=== PATIENT | female | born 1985 | race Caucasian/White ===

== ENCOUNTER 2017-10-02 16:35 | Outpatient (CLI) | payer BC, SELFPAY ==
[2017-10-02 17:19] VITALS: BMI 27.1
--- NOTE | 2017-10-06 16:43 | OB.TRI.NOTE ---
History of Present Illness Date of Service: 10/02/17 Was patient seen by the physician?: No Reason For Visit: R/O LABOR Date of Service: 10/02/17 Final QIAN: 11/24/17 Gestational age: 33 Weeks and 0 Days Home Medications Medication Instructions Recorded Calcium Carbonate [Tums] 500 mg PO BID PRN 10/02/17 Vits [Prenatabs FA] 1 tablet PO DAILY 10/02/17 Ranitidine [Zantac] 150 mg PO BID 10/02/17 Allergies Sulfa (Sulfonamide Antibiotics) Allergy (Verified 10/02/17 17:20) Abd cramps/diarrhea upset stomach NST - FHR Rate Baby A Baseline: 130 Variability:: Moderate Accelerations:: 15 x 15 Decelerations:: None NST Reactive:: Yes FHR Category:: Category I Uterine Activity:: q2-6 min Impression/Plan 32yo @ 32+ wks, contractions, not in labor cervical exam unchanged - dc home with labor precautions.
== END 2017-10-02 18:55 | disposition home or self-care (01) ==
LOC: WPOUT 16:45 → WP 16:47
PROVIDERS: Family Provider Student in an Organized Health Care Education/Training Program; PCP Student in an Organized Health Care Education/Training Program; Visit Provider Obstetrics & Gynecology
DX: O60.03 Preterm labor without delivery, third trimester (principal); Z3A.33 33 weeks gestation of pregnancy
CPT/HCPCS: 59025; 59050; 99218; G0378

== ENCOUNTER 2017-11-23 02:15 | Inpatient (IN) | payer BC, SELFPAY ==
--- NOTE | 2017-11-23 02:15 | DT_ITS ---
This patient was seen during an EMR downtime November 17, 2017 - November 24, 2017. This patient may have a combination of paper and electronic documentation or all paper documentation. All documentation is viewable within the e-chart portion of [facility] for each patient visit.
[2017-11-23 16:24] LABS: Amphetamine Urine VISTA NEGATIVE (<1000 ng/mL); Barbiturate Urine VISTA NEGATIVE (< 200 ng/mL); Benzodiazepine Urine VISTA NEGATIVE (< 200 ng/mL); Cocaine Urine VISTA NEGATIVE (< 300 ng/mL); Ecstacy Urine VISTA NEGATIVE (< 500 ng/mL); Methadone Urine VISTA NEGATIVE (< 300 ng/mL); PCP Urine VISTA NEGATIVE (< 25 ng/mL); THC Urine VISTA NEGATIVE (< 50 ng/mL)
[2017-11-24 05:26] LABS: Hematocrit 27.1 % (37-47); Mean Corp Hgb Conc 33.2 g/gl (32-36); Mean Corpuscular Hgb 30.7 pg (27.0-32.0); Mean Corpuscular Volume 92.5 fL (81-99); Mean Platelet Vol. 11.7 fl (6.2-12.0); Platelet Count 113 K/mm3 (150-450); RBC Distribution Width CV 15.1 % (11.6-14.6); RBC Distribution Width SD 48.8 fl (35.1-43.9); Red Blood Count 2.93 M/mm3 (4.2-5.4); White Blood Count 11.8 K/mm3 (4.4-11.0)
[2017-11-24 05:46] LABS: Scan Indicated on CBC? Y/N NO
[2017-11-24] MEDS: Acyclovir 200 MG Capsule 400 MG PO ×3 (10:15→21:36)
--- NOTE | 2017-11-24 12:15 | PCM.PN.OB ---
Subjective: Doing well per patient and nursing staff. Ambulating and taking PO without difficulty. Voiding and passing flatus. Pain controlled by Motrin. Bottle feeding, planning to pump breastmilk and feed to baby once she is home. Denies any headache, visual changes, chest pain, shortness of breath, leg pain, increased vaginal bleeding or clots. Planning D/C home tomorrow. Baby Circumcised this am. - Physical Exam General: Alert, Oriented x3, Cooperative Lungs: Clear to auscultation, Normal air movement, No rhonchi, No wheeze Cardiovascular: Regular rate, Regular Rhythm, No murmurs Abdomen: Bowel Sounds Present, Soft, Non Tender, - - Fundus firm 2 below U Extremities: No edema, - - Chio's negative bilaterally Psych/Mental Status: Normal Affect, Appropriate Laboratory Tests Past 24 Hrs 11/23/17 11/23/17 11/24/17 04:55 12:45 04:45 WBC 11.8 H RBC 2.93 L Hgb 9.0 L Hct 27.1 L MCV 92.5 MCH 30.7 MCHC 33.2 RDW 15.1 H RDW Differential 48.8 H Plt Count 113 L MPV 11.7 Urine Opiates Screen NEGATIVE Urine Methadone Screen NEGATIVE Ur Barbiturates Screen NEGATIVE Ur Phencyclidine Scrn NEGATIVE Ur Amphetamines Screen NEGATIVE U Methamphetamin-MDMA NEGATIVE U Benzodiazepines Scrn NEGATIVE Urine Cocaine Screen NEGATIVE U Cannabinoids Screen NEGATIVE Ur Drug Screen Comment Blood Type A POSITIVE Antibody Screen NEGATIVE Medical Necessity - Tobacco Use Smoking Status: Current every day smoker Assessment/Plan A: PPD#1 History of drug abuse History of HSV P: 1) Routine PP care. Planning D/C home tomorrow. 2) client services associate consulted due to history of drug abuse, no current use since 2008, low risk. 3) Continue Acyclovir for 6 weeks 4) Start Ferrous Sulfate 325mg PO once daily, Hgb 9.0.
--- NOTE | 2017-11-24 12:22 | DCINST_ITS ---
Discharge Diet: No Restrictions Discharge Activity: Return to Normal Activity, May not drive while taking narcotic pain medications., May Shower May resume sexual activity in: 4-6 weeks Weight Bearing Status: Weight bearing as tolerated Call your doctor if your incision/area has: Continuous Slow Oozing, Sudden Increased Bleeding, Increased Pain/ Swelling, Increased Redness, Foul Smelling Discharge Call your doctor if you observe: Fever of 101 or Higher, Coldness, Increased Pain, Numbness or Tingling, Change in Color, Inability to urinate, Inability to have a bowel movement, Using more than one pad per hour, Shortness of breath, Dizziness, Swelling in the ankles, Chest pain, Prolonged hiccoughing, Increased palpitations (irregular heartbeat), Calf discomfort, Uncontrolled pain Additional Instructions: If you experience any of the following, contact your healthcare provider. * Bleeding that soaks a pad every hour for 2 hours * Fever 100.4 or higher * Unrelieved incision or abdominal pain * Swelling, redness, discharge or bleeding from your incision or episiotomy site * Your incision begins to separate * Problems urinating (including inability to urinate or burning while urinating) . * Visual changes * Severe headache * Flu-like symptoms * Pain or redness in one of both of your breasts * Pain, warmth, tenderness or swelling in your legs, especially the calf area * Frequent nausea and vomiting * Symptoms of depression or anxiety If you experience any of the following, call 911 or go to the nearest Emergency Room. * Chest pain * Problems breathing * Seizure activity * Partial or complete paralysis of a body part, slurred speech, weakness or drooping of the face, or a sudden inability to walk or hold your balance Allergies/Adverse Reactions: Allergies Sulfa (Sulfonamide Antibiotics) Allergy (Verified 10/02/17 17:20) Abd cramps/diarrhea upset stomach Medications to take at Discharge Vits [Prenatabs FA] 1 tablet PO DAILY 10/02/17 Please Follow Up With: Blossom Wolfe CNM When: Call to make an appointment with your doctor in 6 weeks. If you had elevated Blood Pressure or 4th degree laceration you will need to be seen in 2 weeks. Primary Care Physician: Jesus Khan DO [Primary Care Provider] -
[2017-11-24] MEDS: Acetaminophen 325 MG Tablet PO ×2 (13:25→21:36)
[2017-11-24] MEDS: Ferrous Sulfate 325 MG Tablet PO (13:26)
[2017-11-24 13:29] VITALS: BP 108/65; PULSE 76; RESP 14; TEMP 36.4; O2SAT 96
[2017-11-24] MEDS: Ibuprofen 600 MG Tablet PO (18:47)
[2017-11-24 19:45] VITALS: BP 118/74; PULSE 80; RESP 16; TEMP 36.5; O2SAT 100
[2017-11-25 01:45] VITALS: BP 116/63; PULSE 72; RESP 16; TEMP 36.6; O2SAT 100
[2017-11-25] MEDS: Acyclovir 200 MG Capsule 400 MG PO (06:06)
[2017-11-25] MEDS: Ibuprofen 600 MG Tablet PO (06:07)
[2017-11-25] MEDS: Ferrous Sulfate 325 MG Tablet PO (08:27)
[2017-11-25 08:37] VITALS: BP 112/67; PULSE 77; RESP 18; TEMP 36.5; O2SAT 97
--- NOTE | 2017-11-25 11:40 | CASEMGMT ---
Social Work Assessment Labor and Delivery Unit Date of Referral: 11/24/2017 Time of Referral: 0830 Referred By: verbal notification by nursing staff Date of Intervention: 11/25/2017 Time of Intervention: 1140 Reason for Referral: maternal history of depression, anxiety, and remote history of substance use. History obtained from: Medical record and mother of baby (MOB) Elizabeth Cartwright; FOB present for part of conversation. Household composition: MOB, father of baby (FOB) Maksim Cartwright, and older daughter Melissa. MOB reports home situation is safe and adequate. Patient's parent/guardian status: MOB and FOB report to have been together for about3-4 years, since December 2016. MOBs daughter Melissa (born February 2009) is from a different relationship and that father has shared parenting of Melissa. FOB has a son from a previous relationship, this son lives in [place]. [place], is the first child for MOB and FOB together. is to be named, Mich Cartwright. MOB denies any form of abuse in relationship with FOB. Medical History: MOB is G4, P1 to 2 after delivering Mich. MOB with care starting at 8 weeks gestation. Infant born weighing 3210 grams at delivery. Educational Status: MOB graduated high school, denies any issues with reading, writing, or learning comprehension. 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 Parents reports to be doing fine financially. Infant Supplies: Report to have needed baby supplies including safe sleep space, car seat, clothing, diapers, wipes, bottles, formula and bottles. Childcare/Caregiver(s): MOB. Do have early childhood director lined up for when MOB returns to work. Transportation: Both MOB and FOB drive. Programs/Agencies Involved: MOB and FOB deny any agency involvement, or need for referrals to services such as WIC. MOB reports history of counseling, though nothing currently. Children Services/Legal Issues: MOB denies legal issues. Denies past or present involvement with children services. Behavioral Health Issues: MOB reports history of depression and anxiety, no medication though history of counseling. MOB reports in early 20s did have some thoughts of suicide and self-injury but nothing in years. MOB denies any thoughts, plans, intent for suicide during this or currently. MOB denies thoughts of harm to others. MOB reports history of drug use, at age 18 went to rehab for cocaine use. MOB then started to use pills and marijuana. MOB denies any use since 2007 or 2008. MOB reports daughter helped to change life for the better. MOB did have a negative drug screen at time of delivery on 11-23-17. Family/Social Stressors: MOB and FOB just bought their own home, moving last week. MOB and FOB had lived separately with respective families until were able to save enough money to buy a house. Other than move during this , no other changes or stressors reported. Support Systems: MOB report sot have good support from both MOBs side and FOBs side of the family. FOB is taking the week off of work to help MOB with transition to home with baby. Depression/Shaken Baby/Safe Sleeping: MOB and FOB able to give appropriate responses to shaken baby and safe sleeping Educated both to depression, risk, and importance or seeking out support should symptoms arise. ASSESSMENT: MOB and FOB both participated in conversation with social service worker, and FOB stepped out at social workers request. MOB with bright affect, happy mood, good eye contact, and stayed on task to conversation at hand. MOB held baby throughout social work visit, was attentive, and gentle. MOB report to have baby supplies, to have support at home going, reports to feel a connection to baby. MOB denies any drugs use history or desire to return to use. MOB denies any current symptoms of depression or anxiety, or need for referral but does report to know where to turn if counseling is again needed in the future. PLAN: MOB and baby to discharge home today. Provided packet of information on depression, tips on self-care and online supports Provided packet of lists for [facility] resources including mental health and substance abuse providers if needed in the future. No other services requested or indicated. -CROW Contreras, CORRECTIONS SERGEANT
[2017-11-25 12:00] VITALS: BP 123/77; PULSE 86; RESP 18; TEMP 36.3; O2SAT 99
[2017-11-25 15:19] LABS: Hematocrit 33.3 % (37-47); Hemoglobin 11.3 g/dl (12.0-15.0); Mean Corp Hgb Conc 33.9 g/gl (32-36); Mean Corpuscular Volume 91.2 fL (81-99); Mean Platelet Vol. 11.7 fl (6.2-12.0); Platelet Count 122 K/mm3 (150-450); RBC Distribution Width SD 48.7 fl (35.1-43.9); Red Blood Count 3.65 M/mm3 (4.2-5.4); Scan Indicated on CBC? Y/N NO; White Blood Count 15.7 K/mm3 (4.4-11.0)
== END 2017-11-25 12:20 | disposition home or self-care (01) | DRG 775 ==
PROVIDERS: Admitting Provider Obstetrics & Gynecology; Family Provider Student in an Organized Health Care Education/Training Program; PCP Student in an Organized Health Care Education/Training Program; Visit Provider Obstetrics & Gynecology
DX: O99.12 Other diseases of the blood and blood-forming organs and certain disorders involving the immune mechanism complicating childbirth (principal); D69.6 Thrombocytopenia, unspecified; O99.334 Smoking (tobacco) complicating childbirth; Z86.19 Personal history of other infectious and parasitic diseases; Z3A.39 39 weeks gestation of pregnancy; Z37.0 Single live birth
CPT/HCPCS: 59050; 80307; 85027; 86850; 86900; 99218; J7120; G0378

== ENCOUNTER 2021-03-25 00:20 | Outpatient (CLI) | payer BC, SELFPAY ==
[2021-03-25 00:51] VITALS: PULSE 98; O2SAT 98
[2021-03-25 00:52] VITALS: BP 130/76; PULSE 83
[2021-03-25 00:53] VITALS: PULSE 89; TEMP 37.7; O2SAT 98
[2021-03-25 00:57] VITALS: BMI 27.9
[2021-03-25 01:02] VITALS: BP 125/79; PULSE 94
--- NOTE | 2021-03-25 09:25 | OB.TRI.NOTE ---
HPI - General HPI Narrative RASHEED TUTTLE, is a 35 F who presents with ctxs. PFSH PFSH Home Medications vit,[id number] [Prenatabs FA] 1 tab PO DAILY 10/02/17 [History Last Taken 03/24/21 08:00 1 tablet] acyclovir 200 mg PO TID 03/25/21 [History Last Taken 03/24/21] Allergy/AdvReac Type Severity Reaction Status Date / Time Sulfa (Sulfonamide Allergy Abd Verified 03/25/21 00:58 Antibiotics) cramps/diarrhea Social History Smoking Status: Current every day smoker History Elective abortions Hx Para 1 Spontaneous abortions Hx # Term Pregnancies Ectopic pregnancies Hx # Pregnancies Multiple births # of living children NST FHR Rate Baby A Baseline: 125 Variability:: Moderate Accelerations:: 15 x 15 Decelerations:: Variable Uterine Activity:: Irregular Assessment & Plan (1) False labor: COMMENT: 39&4 PLAN: Reactive NST for false labor
== END 2021-03-25 04:30 | disposition home or self-care (01) ==
LOC: WPOUT 00:37 → WP 00:38
PROVIDERS: Visit Provider Obstetrics & Gynecology
DX: O47.1 False labor at or after 37 completed weeks of gestation (principal); O99.333 Smoking (tobacco) complicating pregnancy, third trimester; Z3A.39 39 weeks gestation of pregnancy
CPT/HCPCS: 59025; 59050; 99218; G0378

== ENCOUNTER 2021-03-29 03:55 | Inpatient (IN) | payer BC, SELFPAY ==
[2021-03-29] VITALS (23 sets, daily range): BP systolic 116–165; BP diastolic 71–94; PULSE 64–100; RESP 16–18; TEMP 36.4–37.1; O2SAT 95–98; BMI 27.6
[2021-03-29] MEDS: Lactated Ringers 1,000 ML 50 ML IV (04:10)
[2021-03-29] MEDS: Lactated Ringers 500 ML 999 ML IV (04:15)
[2021-03-29 04:37] LABS: Absolute Lymphocyte Count 2.54 X10^3/uL (0.83-4.51); Absolute Neutrophil Count 8.3 X10^3/uL (2.0-7.7); Basophil# 0.02 X10^3/uL; Basophil% 0.2 % (0-1); Eosinophil# 0.11 X10^3/uL; Eosinophils% 0.9 % (0-5); Hematocrit 33.8 % (37-47); Hemoglobin 11.9 g/dL (12.0-15.0); Lymphocyte # 2.54 X10^3/ul (0.83-4.51); Lymphocyte % 20.8 % (19-41); Mean Corp Hgb Conc 35.2 g/dL (32-36); Mean Corpuscular Hgb 32.2 pg (27.0-32.0); Mean Corpuscular Volume 91.4 fL (81-99); Mean Platelet Vol. 12.3 fl (6.2-12.0); Monocyte# 0.89 X10^3/uL; Monocyte% 7.3 % (0-10); NRBC Flagged by Analyzer 0 % (0-5); Neutrophil # 8.28 X10^3/uL (2.7-7.7); Neutrophil % 67.8 % (47-70); Platelet Count 118 K/mm3 (150-450); RBC Distribution Width CV 13.8 % (11.6-14.6); White Blood Count 12.2 K/mm3 (4.4-11.0)
--- NOTE | 2021-03-29 04:41 | PLAC_PTH ---
PATIENT: RASHEED TUTTLE LOC: [facility] U#:[id number] AGE/SX: 35/F ROOM: [facility] RE03/29/[address]: Blossom Wolfe CNM : 1985 BED: 1 DIS: 03/30/2021 SPEC #: [id number] RECD: 03/29/21 05:56 STATUS: DORIAN MARIE #: [id number] TODD: 03/29/21 04:[address]: Blossom Wolfe DEPT: SURGICAL PATHOLOGY RECD BY: Desirae Chau Tissues: Placenta, NOS Procedures: Surgery Specimen Level V HEADER OPERATION: Vaginal delivery PRE-OP DIAGNOSIS: Bleeding with delivery TISSUE SUBMITTED: Placenta MICROSCOPIC DIAGNOSIS Placenta: Placental disc - third trimester placenta (446 gm). - Focal chronic villitis of unknown etiology. - Focal increased intervillous and perivillous fibrin deposition. Membranes ? nonspecific chronic inflammation (significance is not clear). Umbilical cord - three blood vessels and no pathologic diagnosis. SJ:shaun 04/02/2021 MICROSCOPIC DESCRIPTION Slides are reviewed. GROSS DESCRIPTION SPECIMEN: PLACENTA / CLINICAL INFORMATION: A. Weight: 3.61 kg B. Gestational Age: 40 weeks C. Sex: Male PLACENTAL WEIGHT (POST FIXATION): 446 gm PLACENTAL DIMENSIONS: 18 x 16 x 3 cm PLACENTAL SHAPE: Usual ovoid PLACENTAL WEIGHT FOR GESTATIONAL AGE: Within 10-99th percentile MEMBRANES - Present A. Insertion: Marginal B. Site of rupture from edge: 6 cm from edge of placental disc C. Color of membrane: Prince-patterson D. Abnormalities: None UMBILICAL CORD - Present A. Color: Prince-patterson B. Insertion: Paracentral C. Length: 46 cm D. Diameter: 1 cm E. Number of vessels: Three F. Abnormalities: None PLACENTAL DISC - Present A. Color of surface: Prince-patterson B. surface abnormalities: None C. Maternal cotyledons: Intact with minimal tears D. Attached retro placental clot: No clot E. Cut surface: Dark red and spongy F. Lesions: None G. Separate clot: Absent SECTIONS SUBMITTED: 1. Membrane roll 2. Cord, maternal end 3. Cord, end 4. Placental disc, and maternal surfaces 5. Placental disc, and maternal surfaces 6. Placental disc, and maternal surfaces SJ:shaun 03/30/21 TC:3 CPT: 21624
[2021-03-29] MEDS: Oxytocin 30 units/NS 500 ml 30 UNITS/500 ML IV.SOLN 334 UNITS IV (04:44)
--- NOTE | 2021-03-29 04:51 | PCM.HP.OB ---
HPI - General General Date of Admission: 03/29/21 HPI Narrative RASHEED TUTTLE, is a 35 F at 40w1 who presents in active labor with SROM at 0300. Maternal Data Information QIAN Calculator Estimated Delivery Date Method Current WG Current Estimate 03/28/21 Manual 40w 1d PFSH PFSH Medical History (Updated 03/29/21 @ 05:04 by Blossom Wolfe CNM) Depression Genital herpes affecting History of prior with IUGR HPV (human papilloma virus) infection Home Medications vit,[id number] [Prenatabs FA] 1 tab PO DAILY 10/02/17 [History Last Taken 03/24/21 08:00 1 tablet] acyclovir 200 mg PO TID 03/25/21 [History Last Taken 03/24/21] Allergy/AdvReac Type Severity Reaction Status Date / Time Sulfa (Sulfonamide Allergy Abd Verified 03/25/21 00:58 Antibiotics) cramps/diarrhea Surgical History (Updated 03/29/21 @ 05:01 by Betty Ruiz) History of surgery History of surgery Social History Smoking Status: Current every day smoker History Elective abortions Hx Para 1 Spontaneous abortions Hx # Term Pregnancies Ectopic pregnancies Hx # Pregnancies Multiple births # of living children NST FHR Rate Baby A Baseline: 135 Variability:: Moderate Accelerations:: 15 x 15 Decelerations:: None FHR Category:: Category I Uterine Activity:: every 2 minutes, strong ROS Constitutional Constitutional: Reports systems reviewed and no addt'l complaints, except as documented; Denies headache(s) Eyes Eyes: Denies acute decrease in peripheral vision, blurry vision or change in vision ENT HEENT: Reports systems reviewed and no addt'l complaints, except as documented Cardiovascular Cardiovascular: Denies chest pain or dizziness Respiratory/Chest Respiratory/Chest: Denies cough, dyspnea, dyspnea on exertion, shortness of breath at rest or shortness of breath with exertion Gastrointestinal Gastrointestinal: Denies abdominal pain, diarrhea, nausea or vomiting Genitourinary Genitourinary: Denies abdominal discomfort or movement Musculoskeletal Musculoskeletal: Denies limited range of motion Integumentary Integumentary: Reports systems reviewed and no addt'l complaints, except as documented Neurologic Neurologic: Reports systems reviewed and no addt'l complaints, except as documented Psychiatric Psychiatric: Reports systems reviewed and no addt'l complaints, except as documented Endocrine Endocrinology: Reports systems reviewed and no addt'l complaints, except as documented Hematologic/Lymphatic Hematologic/Lymphatic: Reports systems reviewed and no addt'l complaints, except as documented Allergic/Immunologic Allergic/Immunologic: Reports systems reviewed and no addt'l complaints, except as documented Vital Signs Vital Signs Vital Signs: 03/29/21 04:10 03/29/21 04:27 03/29/21 04:37 Temperature 98.4 F Pulse Rate 85 84 78 Blood Pressure 163/83 H 165/83 H 160/84 H BP Systolic 163 165 160 BP Diastolic 83 83 84 03/29/21 04:42 03/29/21 04:50 Temperature 97.9 F Pulse Rate 100 70 Blood Pressure 149/76 H 134/94 H BP Systolic 149 134 BP Diastolic 76 94 Physical Exam Const alert and oriented x3 General Appearance: cooperative Orientation / Consciousness: awake, oriented to person, oriented to place and oriented to time Exam Limitations: no limitations HEENT normocephalic Head and Scalp: normal to inspection, normocephalic and atraumatic Face and Sinus: normal facial exam Eyes General Eye: normal appearance of both eyes Neck full ROM Chest Chest: symmetrical chest wall rise Resp normal respiratory effort and normal air movement Auscultation: clear to auscultation bilaterally Cardio regular rate, regular rhythm, S1 normal heart sound, S2 normal heart sound, no murmurs, no rub, no gallops and no clicks GI normal to inspection, nondistended, normoactive bowel sounds and non-tender appearance of the vagina normal Bladder / Kidney Exam: no CVA tenderness Manual OB Exam: estimated gestational size appropriate, presentation cephalic, dilated 9cm, effaced 90%, station +1 and other Back/Spine normal ROM Extremity normal to inspection and full ROM Skin no rashes or lesions noted Neuro oriented x3, CN's II-XII intact bilaterally and moves all extremities Sensorium / Orientation: awake, alert and oriented to person Motor Exam: clonus absent Deep Tendon Reflexes: Rt Patellar (L4): 2+ and Lt Patellar (L4): 2+ Labs Labs Labs: Blood Type A POSITIVE Antibody Screen NEGATIVE Hct 33.8 % (37-47) L Hgb 11.9 g/dL (12.0-15.0) L Rhogam given: No GBS negative RPR negative Rubella Immune HBsAG negative HepC negative HIV negative A positive GC/CT negative Urine tox screen negative on 08/18/20 Assessment & Plan (1) Active labor at term: (2) SROM (spontaneous rupture of membranes): (3) Thrombocytopenia affecting : (4) History of drug use: (5) History of herpes genitalis: (6) History of depression: (7) Tobacco use during : PLAN: 1. Admit to labor and delivery 2. Routine labs and IV 3. COVID screen 4. GBS negative 5. Planning unmedicated 6. EFM 7. collaborative physician and notified of patient admission
[2021-03-29 05:06] LABS: Amphetamine Urine VISTA NEGATIVE (<1000 ng/mL); Barbiturate Urine VISTA NEGATIVE (< 200 ng/mL); Benzodiazepine Urine VISTA NEGATIVE (< 200 ng/mL); Cocaine Urine VISTA NEGATIVE (< 300 ng/mL); Ecstacy Urine VISTA NEGATIVE (< 500 ng/mL); Methadone Urine VISTA NEGATIVE (< 300 ng/mL); PCP Urine VISTA NEGATIVE (< 25 ng/mL); THC Urine VISTA NEGATIVE (< 50 ng/mL); Vista UDS pH Range 7
--- NOTE | 2021-03-29 05:07 | OP.PCM_ITS ---
Assessment & Plan (1) Vaginal delivery: (2) Umbilical cord around neck in neri : Maternal Data Information QIAN Calculator Estimated Delivery Date Method Current WG Current Estimate 03/28/21 Manual 40w 1d Vaginal Delivery Maternal Presentation Maternal Presentation: Active Labor and Spontaneous Rupture of Membranes Operative Information Date of Procedure: 03/29/21 Pre-Operative Diagnosis: Active labor with Spontaneous Rupture of Membranes Post-Operative Diagnosis: Surgery / Procedure Performed: Spontaneous Vaginal Delivery Type of Anesthesia: None Estimated Blood Loss: 200ml Time of Delivery: 04:41 Findings Description of Procedure: Arrived at 7cm dilated and progressed rapidly to compl ete dilation with strong urge to push. Unmedicated. of viable male over intact perineum. APGARS 8,9. Infant head delivereed with CAN x1, delivered through. Cord around arm, abdomen, and legs bilaterally loose. Infant placed on maternal abdomen, mouth and nares suctioned for secretions, strong cry. Pitocin started for active 3rd stage management. Cord clamped and cut after pulsations ceased. Placenta delivered with maternal pushing, intact via connie, 3 vessel cord. Perineum inspected and revealed no lacerations and intact. Fundal massage and fundus firm, EBL 200ml. Vaginal sweep completed, sponge and instrument count correct. Mom and baby stable, planning to breastfeed. Family bonding well. notified of delivery. Presentation: Vertex and ALLA Amniotic Membrane Rupture Type: Spontaneous Amniotic Fluid Description: Clear and Bloody Placental Delivery Description: Spontaneous Placenta Disposition: Sent to Pathology Cord Vessel Description: 3 Vessels Cord Entanglement: Around neck x 1, loose (around arm, abdomen and legs bilaterally. All loose) Nuchal Cord Compression: Without compression A Gender: Male (1 minute): 8 (5 minute): 9 Delayed Cord Clamping: Yes Post Vaginal Delivery Medications Given After Delivery: IV Pitocin Episiotomy Description: None Laceration: None Complication Complications: None
[2021-03-29] MEDS: Ibuprofen 600 MG Tablet PO ×3 (06:26→20:21)
[2021-03-29] MEDS: Acetaminophen 500 MG Tablet 1000 MG PO (16:48)
[2021-03-30] MEDS: Acetaminophen 500 MG Tablet 1000 MG PO ×2 (00:01→08:11)
[2021-03-30 03:44] VITALS: BP 124/84; PULSE 81; RESP 18; TEMP 36.3
[2021-03-30] MEDS: Ibuprofen 600 MG Tablet PO (04:56)
--- NOTE | 2021-03-30 07:20 | PCM.PN.OB ---
Subjective Subjective Patient seen at bedside. Feeling good. Denies any pain. Ambulating and voiding without difficulty. Bottle feeding. Lochia decreasing. Desires discharge home today. Objective Data Objective Data Vital Signs: Vital Signs Temp Pulse Resp BP Pulse Ox 97.4 F L 81 18 124/84 H 95 03/30/21 03:44 03/30/21 03:44 03/30/21 03:44 03/30/21 03:44 03/29/21 11:21 Oxygen Delivery Method Room Air Weight: 176 lb 9.6 oz Body Mass Index (BMI) 27.6 Intake & Output: Intake and Output for Last 24 Hours 03/28/21 03/29/21 03/30/21 23:59 23:59 23:59 Intake Total 937.07 / 937.07 Balance 937.07 / 937.07 Lab / Micro Data Result Diagrams: 03/29/21 04:10 Micro: Microbiology 03/29/21 04:10 Nasal Secretion SARS-CoV-2 Antigen (Rapid) - Final ROS Eyes Eyes: Denies blurry vision, change in vision or spots in vision ENT HEENT: Denies dizziness or headache(s) Cardiovascular Cardiovascular: Denies abdominal pain, chest pain or dyspnea Respiratory/Chest Respiratory/Chest: Denies cough, dyspnea, shortness of breath at rest or shortness of breath with exertion Gastrointestinal Gastrointestinal: Denies abdominal pain, diarrhea or vomiting Genitourinary Genitourinary: Denies change in urinary stream, difficulty urinating or dysuria Musculoskeletal Musculoskeletal: Reports none Integumentary Integumentary: Denies rash Neurologic Neurologic: Denies dizziness, headache(s), memory loss or weakness Physical Exam Const alert and no apparent distress General Appearance: cooperative and comfortable Exam Limitations: no limitations HEENT normocephalic Eyes General Eye: normal appearance of both eyes Neck full ROM General: normal visual inspection Chest Chest: symmetrical chest wall rise Resp normal respiratory effort and normal air movement Effort and Inspection: symmetric chest movement Auscultation: clear to auscultation bilaterally Cardio regular rate and regular rhythm GI normal to inspection, nondistended, normoactive bowel sounds Back/Spine normal ROM Extremity full ROM and no calf tenderness General Extremity: normal exam except as noted Skin no rashes or lesions noted Neuro CN's II-XII intact bilaterally Psych mental status grossly normal Assessment & Plan (1) Vaginal delivery: PLAN: PPD 1 Routine care Discharge home with follow up in office
--- NOTE | 2021-03-30 07:29 | PCM.DC ---
Discharge Instructions Diet Discharge Diet: No restrictions Activity May resume sexual activity in: 6-8 weeks Weight Bearing Status: Weight bearing as tolerated Dressing / Incision Call your doctor if you observe: Fever of 101 or Higher, Inability to urinate, Using more than 1 pad per hour, Shortness of breath, Chest pain, Calf discomfort and Uncontrolled pain Follow Up Care Please Follow Up With: Michelle Osorio CNM When: 2 weeks virtual visit/ 6 weeks in office Test Results: Test results from this visit will be discussed in further detail at your follow-up appointment, if applicable. Discharge Plan Admission Admit Date/Time: 03/29/21 03:55 Primary Reason for Your Visit: Labor and delivery Attending Provider: Blossom Wolfe Discharge Orders/Prescriptions Prescriptions: Continued Prenatabs FA 1 TABLET tablet 1 tab PO DAILY RF: 0 Discontinued pantoprazole 20 mg Tablet,Delayed Release (Dr/Ec) 20 mg PO DAILY RF: 0 ferrous sulfate [Iron (ferrous sulfate)] 325 mg (65 mg iron) Tablet 325 mg PO DAILY RF: 0 acyclovir 200 mg Capsule 200 mg PO TID RF: 0 Disposition Disposition (needs filled in before D/C Order can be placed): Home, Self Care
[2021-03-30 08:21] VITALS: BP 114/77; PULSE 73; RESP 16; TEMP 36.9
--- NOTE | 2021-03-30 13:33 | CASEMGMT ---
Social Work Assessment Labor and Delivery Unit Patient Address: [address] [place] [address] Phone number: [phone] Date of Referral: 03.29.2021 Time of Referral: 829 Referred By: verbal notification by nursing Date of Intervention: 03.30.2021 Time of Intervention: 1030 Reason for Referral: Maternal history of depression and anxiety; remote history of substance use.n History obtained from: medical records including prior social work assessment, and mother of baby (MOB) Elizabeth Cartwright; father of baby (FOB) Maksim Cartwright also present. Household composition: MOB, FOB, and older children. No housing issues reported. Patient's parent/guardian status: MOB and FOB have been since December 2016. No reports of safety concerns and upone admission MOB denied any abuse. Prior social worke assessment, MOB also denies abuse. Minor children include: Melissa (born February), from a prior relationship, and history of shared parenting. Mich Cartwright (born November 2017) and baby Pushpa Cartwright (born 03[birth year]2021) are from relationship with the FOB. Medical History: KASEY is G5, P2 to 3 after delivering Talat. care started at 8 weeks gestation and regular thereafter. weighed 7 pounds 15 ounces at . Apgars 8 and 9 at 1 and 5 minutes of life. Educational Status: MOB graduated high school, denies any issues with reading, writing, or learning comprehension. Financial Status: FOB works in a body shop. 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 Infant Supplies: Report to have needed baby supplies including safe sleep space, car seat, clothing, diapers, wipes, bottles, formula and bottles. Childcare/Caregiver(s): MOB and FOB. Transportation: No issues. Programs/Agencies Involved: None reported. Denies need for any referrals to WIC, and decline referrals to [facility]> Children Services/Legal Issues: No reported involvement. Behavioral Health Issues: Mental Health History: Maternal history of depression, anxiety, and as a teen self injury. Denies any depression or anxiety history. Denies any mood or anxiety changes during this . History of both counseling and medication, though not current with either. Substance Use HistoryPrior social work assessment indicates MOB with history of drug use, at age 18 went to rehab for cocaine use. MOB then started to use pills and marijuana. [facility] record indicates history of some meth use during that timeframe. No reported use since 2008. MOB denies during this assessment and concerns for recent or current substance use. MOB reported in the past that her daughter helped MOB to change life for the better. Drug Screens: Maternal drug screens negative on 08.18.2020 and 03.29.2021. Family/Social Stressors: None reported. Support Systems: FOB, MOB's mother, sister, and MOB's in-laws. FOB will be off of work for a week to help out at home. Depression/Shaken Baby/Safe Sleeping : Information provided on all topics, verbally and in writing. ASSESSMENT: Me with MOB and FOB together. MOB holding baby who was sleeping. MOB gentle appropriate, and handling baby well. MOB smiling, bright affect, nondefensive. FOB quiet, but did participate and appropriate interactions noted. Parents report to have needed supplies for baby, reports to have adequate support, and MOB denies current concerns with mood or anxiety. Reports if needed in the future would go to counseling and use medication as a last resort. MOB and FOB accepted information on mood and anxiety disorders, which includes local supports. No voiced concerns by nursing staff regarding parent/child interactions or bonding. PLAN: MOB and baby to home. Resource or PPD/PPA provided for home going. No other services requested or indicated. -CROW Contreras, GOMEZ
[2021-04-03 15:45] LABS: Pathology Specimen OB SEE PATHOLOGY REPORT
== END 2021-03-30 11:35 | disposition home or self-care (01) | DRG 807 ==
PROVIDERS: Admitting Provider Advanced Practice Midwife; Visit Provider Advanced Practice Midwife
DX: O99.12 Other diseases of the blood and blood-forming organs and certain disorders involving the immune mechanism complicating childbirth (principal); Z37.0 Single live birth; D69.6 Thrombocytopenia, unspecified; O69.81X0 Labor and delivery complicated by cord around neck, without compression, not applicable or unspecified; O99.334 Smoking (tobacco) complicating childbirth; F17.200 Nicotine dependence, unspecified, uncomplicated; Z3A.40 40 weeks gestation of pregnancy
CPT/HCPCS: 59025; 59050; 80307; 85025; 86850; 86900; 86901; 87426; 88307; 99218; J7120; G0378

== ENCOUNTER 2021-11-28 16:47 | Emergency (ER) | payer BC, SELFPAY ==
[2021-11-28 16:48] VITALS: BP 127/81; PULSE 93; RESP 16; TEMP 37.3; O2SAT 99; BMI 23.5
[2021-11-28 16:50] VITALS: BP 127/81; PULSE 93; RESP 16; TEMP 37.3; O2SAT 99
--- NOTE | 2021-11-28 17:35 | RAD_ITS ---
STUDY: XR Hand Min 3 Views REASON FOR EXAM: Female, 36 years old. cat bite to 5th finger TECHNIQUE: XR Hand Min 3 Views RIGHT COMPARISON: None. FINDINGS: Normal radiocarpal articulation. Normal distal radioulnar joint. Normal visualized carpal bones. Normal carpal articulations Normal carpometacarpal articulation of the thumb. Normal second through fifth carpometacarpal joints. Normal metacarpi. Normal metacarpophalangeal joint of the thumb. Normal interphalangeal joint of the thumb. Normal proximal and distal phalanges of the thumb. Normal metacarpophalangeal joints of the second through fifth fingers. Normal proximal and distal interphalangeal joints of the second through fifth fingers. Normal phalanges of the second through fifth fingers. The soft tissue structures are unremarkable. RAD/Hand Min 3 Views IMPRESSION: There are no acute findings. Electronically Signed: Osvaldo Rowell MD at 17:59 EDT ,
[2021-11-28 17:49] LABS: Absolute Lymphocyte Count 2.08 X10^3/uL (0.83-4.51); Absolute Neutrophil Count 12.2 X10^3/uL (2.0-7.7); Basophil# 0.02 X10^3/uL; Basophil% 0.1 % (0-1); Eosinophil# 0.08 X10^3/uL; Eosinophils% 0.5 % (0-5); Hematocrit 37.1 % (37-47); Hemoglobin 12.9 g/dL (12.0-15.0); Lymphocyte # 2.08 X10^3/ul (0.83-4.51); Lymphocyte % 13.6 % (19-41); Mean Corp Hgb Conc 34.8 g/dL (32-36); Mean Corpuscular Hgb 30.3 pg (27.0-32.0); Mean Corpuscular Volume 87.1 fL (81-99); Mean Platelet Vol. 12.2 fl (6.2-12.0); Monocyte# 0.78 X10^3/uL; Monocyte% 5.1 % (0-10); NRBC Flagged by Analyzer 0 % (0-5); Neutrophil # 12.24 X10^3/uL (2.7-7.7); Neutrophil % 80.1 % (47-70); Platelet Count 172 K/mm3 (150-450); RBC Distribution Width CV 12.3 % (11.6-14.6); RBC Distribution Width SD 38.9 fl (35.1-43.9); Red Blood Count 4.26 M/mm3 (4.2-5.4); White Blood Count 15.3 K/mm3 (4.4-11.0)
[2021-11-28 17:58] LABS: Anion Gap 6 (5-15); BUN 11 mg/dL (7-18); Calcium,Total 9.9 mg/dL (8.5-10.1); Chloride 106 mmol/L (98-107); Creatinine, Serum 0.79 mg/dL (0.55-1.02); EST Glomerular Filtration Rate 89 mL/min (>60); Est Glom Filt Rate - Afr Amer 107 mL/min (>60); Estimated Creatinine Clearance 97.58 ml/min; Glucose 92 mg/dL (74-106); Potassium 3.6 mmol/L (3.5-5.1); Sodium Level 140 mmol/L (136-145)
--- NOTE | 2021-11-28 17:59 | EX.ED.GENINJ ---
HPI History of Present Illness Chief Complaint: Bite Informant: patient Narrative Narrative: Patient is a 36-year-old female with no significant past medical history presenting with cat bite to her right pinky finger. Patient is right-hand dominant. She states that she was at her parents house and she was scratched and bit by her parents cat. The cat is approximately 7 years old. Otherwise been acting appropriately. This happened around 1045 this morning. She is already having increased pain and swelling of her right pinky finger where the bite occurred and she came in for further evaluation. She did she went to urgent care but was told she needs to come to the ER. Denies associated fever or chills. Has no other complaints at this time. Tetanus Immunization: <5 years PFSH PFS Medical History Depression Genital herpes affecting History of depression History of drug use History of herpes genitalis History of prior with IUGR HPV (human papilloma virus) infection SROM (spontaneous rupture of membranes) Thrombocytopenia affecting Umbilical cord around neck in neri Vaginal delivery Home Medications amoxicillin 875 mg-potassium clavulanate 125 mg tablet 1 tab PO BID #20 tabs 11/28/21 [Rx Last Taken Unknown] ibuprofen 600 mg tablet 600 mg PO Q6H PRN pain #20 tabs 11/28/21 [Rx Last Taken Unknown] Allergy/AdvReac Type Severity Reaction Status Date / Time Sulfa (Sulfonamide Allergy Abd Verified 11/28/21 16:47 Antibiotics) cramps/diarrhea Surgical History History of surgery History of surgery Social History Smoking Status: Former smoker ROS ROS ED Constitutional Constitutional ED: Denies chills or fever(s) Eyes Eyes: Denies change in vision ENT ENT ED: Denies rhinorrhea or sore throat Cardiovascular Cardiovascular: Denies chest pain or palpitations Respiratory/Chest Respiratory/Chest: Denies cough Gastrointestinal Gastrointestinal: Denies abdominal pain, nausea or vomiting Genitourinary Genitourinary ED: Denies dysuria Musculoskeletal Musculoskeletal: Reports other Details: Right fifth finger pain and swelling ; Denies arthralgias or myalgias Integumentary Reports Abrasions Neurologic Neurologic: Denies headache(s), paresthesias or weakness Hematologic/Lymphatic Hematologic/Lymphatic: Denies easy bleeding or easy bruising EXAM Physical Exam Const Vital Signs: 11/28/21 16:48 11/28/21 16:50 Temperature 99.1 F 99.1 F Temperature Source Temporal Temporal Pulse Rate 93 93 Respiratory Rate 16 16 Blood Pressure 127/81 H 127/81 H Blood Pressure Mean 96 Pulse Ox 99 99 Oxygen Delivery Method Room Air Room Air Positive well nourished and well developed General Appearance ED: well developed HEENT atraumatic Eyes PERRL and EOMs intact bilaterally Chest Wall inspection of chest normal Resp normal respiratory effort and clear to auscultation bilaterally Cardio regular rhythm and no murmurs GI normal to inspection, nondistended, normoactive bowel sounds, non-tender and non-distended Extremity Extremity Narrative: Patient has localized swelling of the right pinky finger along the proximal phalanges. No joint swelling. Slightly decreased ability to flex the finger however I suspect this is from the edema. There is no tenderness over the flexor tendons and patient does not have Kan[place] signs. Neuro oriented x3, moves all extremities and no focal motor deficits Skin Skin Narrative: Puncture wound to the medial lateral aspect of the right proximal fifth finger. There is also scattered abrasions on both extremities consistent with cat scratches. No area of fluctuance or significant area of erythema/lymphangitic streaking appreciated. MDM MDM MDM Narrative Medical decision making narrative: Patient is evaluated for cat bite with associated right pinky pain and swelling. This occurred earlier today. She is concerned because of the increased swelling already. Pain is worse with range of motion. She did take NSAIDs prior to arrival. On exam patient is has normal vital signs. She does have some localized tenderness but no out right abscess or cellulitis. No pinpoint bony tenderness. No lymphangitic streaking or Kanaval signs. X-ray obtained which shows no signs of foreign body as interpreted by myself as well as radiology. I did check baseline lab work which did show mild leukocytosis of 15.3 and a normal BMP. CRP is pending. Patient is given a dose of Unasyn in the emergency room. On repeat examination patient has no progression or change in her physical exam. I feel that she is stable for outpatient treatment. She is given return precautions including worsening redness, swelling, pain or systemic symptoms such as fever or chills. She is counseled to have a low threshold to return to the emergency room as cat bites can get pretty bad very quickly. Is placed in a fabricated ulnar gutter splint for comfort and given Ortho for outpatient follow-up. Is started on Augmentin. Patient verbalizes agreement understand this plan. Discharged home in stable condition. Lab Data Attestation: I reviewed the patient's lab results. Labs: Laboratory Results - last 24 hr 11/28/21 11/28/21 17:40 17:40 WBC 15.3 H RBC 4.26 Hgb 12.9 Hct 37.1 MCV 87.1 MCH 30.3 MCHC 34.8 RDW Std Deviation 38.9 RDW Coeff of Bro 12.3 Plt Count 172 MPV 12.2 H Immature Gran % (Auto) 0.600 Neut % (Auto) 80.1 H Lymph % (Auto) 13.6 L [place] % (Auto) 5.1 Eos % (Auto) 0.5 Baso % (Auto) 0.1 Absolute Neuts (auto) 12.2 H Absolute Lymphs (auto) 2.08 Nucleated RBC % 0 Sodium 140 Potassium 3.6 Chloride 106 Carbon Dioxide 28.0 Anion Gap 6 BUN 11 Creatinine 0.79 Estim Creat Clear Calc 97.58 Est GFR (MDRD) Af Amer 107 Est GFR (MDRD) Non-Af 89 BUN/Creatinine Ratio 14.0 Glucose 92 Calcium 9.9 Radiography Diagnostic Testing: Clinical Impression(s) from Imaging Studies Hand X-Ray 11/28/21 17:35 IMPRESSION: There are no acute findings. Electronically Signed: Osvaldo Rowell MD at 17:59 EDT Reading Location ID and State: [facility] / [place] , Service support , Discharge Plan Triage Chief Complaint: Bite ED Provider: Carole Johansen Dx/Rx/DC Orders Clinical Impression: Cat bite, Cat bite of right hand with infection, Leukocytosis Instructions: ED Cat Bite Prescriptions: New amoxicillin-pot clavulanate 875-125 mg tablet 1 tab PO BID Qty: 20 0RF ibuprofen 600 mg tablet 600 mg PO Q6H PRN (Reason: pain) Qty: 20 0RF Primary Care Provider: Jesus Khan Referrals: Reid Acevedo DO [STAFF PHYSICIAN] - Jesus Khan DO [Primary Care Provider] - Activity Restrictions/Additional Instructions: Wear splint for comfort. Elevates your hand is much as possible to help with swelling. Ice through the splint.
[2021-11-28 20:10] LABS: CRP < 2.90 mg/L (0.0-3.0)
== END 2021-11-28 20:19 | disposition home or self-care (01) ==
LOC: ED 17:50
PROVIDERS: Emergency Provider Emergency Medicine; PCP Student in an Organized Health Care Education/Training Program; Visit Provider Emergency Medicine
DX: S61.451A Open bite of right hand, initial encounter (principal); S61.259A Open bite of unspecified finger without damage to nail, initial encounter; Z87.891 Personal history of nicotine dependence; D72.829 Elevated white blood cell count, unspecified; W55.01XA Bitten by cat, initial encounter
CPT/HCPCS: 29125; 73130; 80048; 85025; 86140; 96365; 99283; J7050; A4216; J0295

== ENCOUNTER 2023-09-16 09:50 | Inpatient (IN) | payer OTHER, SELFPAY ==
[2023-09-16] VITALS (69 sets, daily range): BP systolic 102–175; BP diastolic 55–94; PULSE 76–101; RESP 15–17; TEMP 36.1–36.9; O2SAT 93–100; BMI 29.6
[2023-09-16] MEDS: Oxytocin 10 UNITS/ML Vial IM (10:17)
--- NOTE | 2023-09-16 10:22 | PCM.HP.OB ---
HPI - General General Date of Admission: 09/16/23 Date of Service: 09/16/23 HPI Narrative RASHEED TUTTLE, is a 38 F who presents ctxs. Maternal Data Information Final QIAN: 09/27/23 Gestational age: 38&3 PFSH PFSH Medical History (Updated 09/16/23 @ 10:[address] Jens Davidson MD) Depression Genital herpes affecting History of depression History of drug use History of herpes genitalis History of prior with IUGR HPV (human papilloma virus) infection Thrombocytopenia affecting Home Medications amoxicillin 875 mg-potassium clavulanate 125 mg tablet 1 tab PO BID #20 tabs 11/28/21 [Rx Last Taken Unknown] ibuprofen 600 mg tablet 600 mg PO Q6H PRN pain #20 tabs 11/28/21 [Rx Last Taken Unknown] Allergy/AdvReac Type Severity Reaction Status Date / Time Sulfa (Sulfonamide Allergy Abd Verified 11/28/21 16:47 Antibiotics) cramps/diarrhea Surgical History History of surgery History of surgery Social History Smoking Status: Former smoker History Elective abortions Hx Para 2 Spontaneous abortions Hx # Term Pregnancies Ectopic pregnancies Hx # Pregnancies Multiple births # of living children Vital Signs Vital Signs Vital Signs: 09/16/23 10:20 09/16/23 10:21 09/16/23 10:20 Pulse Rate 80 82 Blood Pressure 137/85 H BP Systolic 137 BP Diastolic 85 Pulse Ox 09/16/23 10:21 Pulse Rate Blood Pressure BP Systolic BP Diastolic Pulse Ox 97 Labs Labs Labs: Blood Type A POSITIVE Antibody Screen NEGATIVE Hct 37.1 % (37-47) Hgb 12.9 g/dL (12.0-15.0) Rhogam given: No Assessment & Plan (1) Active labor at term: (2) Thrombocytopenia affecting : (3) Anemia affecting : QUALIFIERS: Trimester: third trimester Qualified Code(s): O99.013 - Anemia complicating , third trimester PLAN: Plan Patient presented in labor & precipitous .
--- NOTE | 2023-09-16 10:24 | EX.PCM.OBRPT ---
Maternal Data Information Final QIAN: 09/27/23 Gestational age: 38&3 Vaginal Delivery Maternal Presentation Maternal Presentation: Active Labor Operative Information Date of Procedure: 09/16/23 Pre-Operative Diagnosis: Labor Post-Operative Diagnosis: Labor Surgery / Procedure Performed: Spontaneous Vaginal Delivery Type of Anesthesia: None Estimated Blood Loss: 200ml Findings Description of Procedure: Patient prepped & draped when C/C/+2. She pushed well to deliver the head. head gently guided to allow delivery of anterior and posterior shoulders. No excess traction placed on head. Body delivered and 3VC clamped & cut in delayed fashion. Placenta delivered with gentle traction and good uterine tone obtained. Presentation: NIESHA Amniotic Membrane Rupture Type: Spontaneous Amniotic Fluid Description: Clear Placental Delivery Description: Expressed Placenta Disposition: [facility] Specimen(s) Removed: Placenta Cord Vessel Description: 3 Vessels Cord Entanglement: None Infant A Gender: Male (Sheela) (1 minute): 8 (5 minute): 9 Delayed Cord Clamping: Yes Post Vaginal Delivery Medications Given After Delivery: IM Pitocin Episiotomy Description: None Laceration: None Complication Complications: None
[2023-09-16] MEDS: Methylergonovine 0.2 MG/ML Ampul IM (11:12)
[2023-09-16] MEDS: Acetaminophen 500 MG Tablet PO (11:43)
[2023-09-16 11:55] LABS: Absolute Lymphocyte Count 1.33 X10^3/uL (0.83-4.51); Absolute Neutrophil Count 10.8 X10^3/uL (2.0-7.7); Basophil# 0.02 X10^3/uL; Basophil% 0.2 % (0-1); Eosinophil# 0.04 X10^3/uL; Eosinophils% 0.3 % (0-5); Hematocrit 31.3 % (37-47); Hemoglobin 10.3 g/dL (12.0-15.0); Lymphocyte # 1.33 X10^3/ul (0.83-4.51); Lymphocyte % 10.1 % (19-41); Mean Corp Hgb Conc 32.9 g/dL (32-36); Mean Corpuscular Hgb 28.6 pg (27.0-32.0); Mean Corpuscular Volume 86.9 fL (81-99); Mean Platelet Vol. 12.5 fl (6.2-12.0); Monocyte# 0.76 X10^3/uL; Monocyte% 5.8 % (0-10); NRBC Flagged by Analyzer 0 % (0-5); Neutrophil # 10.82 X10^3/uL (2.7-7.7); Platelet Count 132 K/mm3 (150-450); RBC Distribution Width CV 18.7 % (11.6-14.6); RBC Distribution Width SD 57.5 fl (35.1-43.9); White Blood Count 13.2 K/mm3 (4.4-11.0)
[2023-09-16 12:03] LABS: Syphilis Antibodies Non-reactive
[2023-09-16] MEDS: Magnesium Sulfate 4gm/100mL 4 GM/100 ML IV.SOLN. IV (12:25)
[2023-09-16] MEDS: Lactated Ringers 1,000 ML 25 ML IV (12:26)
[2023-09-16] MEDS: Labetalol (Prefilled) 20 MG/4 ML IV (12:32)
[2023-09-16] MEDS: Magnesium Sulfate 20 GM/500 ML BAG IV ×2 (13:00→22:53)
[2023-09-16 16:37] LABS: Amphetamine Urine NEGATIVE (<1000 ng/mL); Barbiturate Urine NEGATIVE (< 200 ng/mL); Benzodiazepine Urine NEGATIVE (< 200 ng/mL); Cocaine Urine NEGATIVE (< 300 ng/mL); Ecstacy Urine NEGATIVE (< 500 ng/mL); Methadone Urine NEGATIVE (< 300 ng/mL); Opiates Urine NEGATIVE (< 300 ng/mL); PCP Urine NEGATIVE (< 25 ng/mL); THC Urine NEGATIVE (< 50 ng/mL); Vista UDS pH Range 6
[2023-09-16 18:02] LABS: ALB/GLOB Ratio 0.8 RATIO (0.9-2.4); AST(SGOT) 18 U/L (15-37); Alanine Aminotransfer ALT/SGPT 13 U/L (13-56); Albumin, Serum 2.8 g/dL (3.2-5.0); Alkaline Phosphatase 116 U/L (45-117); Anion Gap 11 (5-15); BUN 3 mg/dL (7-18); BUN/Creat Ratio 7.6 RATIO (10-20); Calcium,Total 8.3 mg/dL (8.5-10.1); Chloride 106 mmol/L (98-107); Creatinine, Serum 0.39 mg/dL (0.55-1.02); EST Glomerular Filtration Rate 195 mL/min (>60); Est Glom Filt Rate - Afr Amer 236 mL/min (>60); Estimated Creatinine Clearance 224.32 ml/min; Globulin 3.5 g/dL (2.2-4.2); Glucose 83 mg/dL (74-106); Potassium 3.4 mmol/L (3.5-5.1); Protein, Total 6.3 g/dL (6.4-8.2); Sodium Level 136 mmol/L (136-145); Uric Acid 5.7 mg/dL (2.6-6.0)
[2023-09-16] MEDS: Ibuprofen 600 MG Tablet PO (19:42)
[2023-09-17] VITALS (20 sets, daily range): BP systolic 108–137; BP diastolic 58–84; PULSE 74–91; RESP 14–18; TEMP 36.1–36.7; O2SAT 93–98
[2023-09-17] MEDS: Ibuprofen 600 MG Tablet PO ×2 (07:39→15:45)
--- NOTE | 2023-09-17 08:10 | PN_ITS ---
Subjective Subjective patient seen at bedside, doing well. Patient reports good pain control. lochia mild. denies RODRIGUEZ, visual changes or epigastric pain. Objective Data Objective Data Vital Signs: Vital Signs Temp Pulse Resp BP Pulse Ox O2 Del Method 97 F L 78 14 115/71 98 Room Air 09/17/23 07:31 09/17/23 07:32 09/17/23 07:31 09/17/23 07:32 09/17/23 07:31 09/17/23 07:31 Oxygen Delivery Method Room Air Weight: 85.735 kg Body Mass Index (BMI) 29.6 Intake & Output: Intake and Output for Last 24 Hours 09/15/23 09/16/23 09/17/23 23:59 23:59 23:59 Intake Total 1014.17 / 1014.17 200 / 200 Output Total 1000 / 1000 500 / 500 Balance 14.17 / 14.17 -300 / -300 Lab / Micro Data 09/16/23 11:15 09/16/23 17:25 Labs: Laboratory Results - last 24 hr 09/16/23 11:15: WBC 13.2 H, RBC 3.60 L, Hgb 10.3 L, Hct 31.3 L, MCV 86.9, MCH 28.6, MCHC 32.9, RDW Std Deviation 57.5 H, RDW Coeff of Bro 18.7 H, Plt Count 132 L, MPV 12.5 H, Immature Gran % (Auto) 1.600 H, Neut % (Auto) 82.0 H, Lymph % (Auto) 10.1 L, [place] % (Auto) 5.8, Eos % (Auto) 0.3, Baso % (Auto) 0.2, Absolute Neuts (auto) 10.8 H, Absolute Lymphs (auto) 1.33, Nucleated RBC % 0, Syphilis Total Ab Non-reactive, Blood Type Cancelled, Antibody Screen Cancelled 09/16/23 11:55: Blood Type A POSITIVE, Antibody Screen NEGATIVE 09/16/23 16:00: Urine Opiates Screen NEGATIVE, Urine Methadone Screen NEGATIVE, Ur Barbiturates Screen NEGATIVE, Ur Phencyclidine Scrn NEGATIVE, Ur Amphetamines Screen NEGATIVE, MDMA (Ecstasy) Screen NEGATIVE, U Benzodiazepines Scrn NEGATIVE, Urine Cocaine Screen NEGATIVE, U Cannabinoids Screen NEGATIVE, Ur Drug Screen Comment 09/16/23 17:25: Sodium 136, Potassium 3.4 L, Chloride 106, Carbon Dioxide 19.0 L , Anion Gap 11, BUN 3 L, Creatinine 0.39 L, Estim Creat Clear Calc 224.32, Est GFR (MDRD) Af Amer 236, Est GFR (MDRD) Non-Af 195, BUN/Creatinine Ratio 7.6 L, Glucose 83, Uric Acid 5.7, Calcium 8.3 L, Total Bilirubin 0.50, AST 18, ALT 13, Alkaline Phosphatase 116, Total Protein 6.3 L, Albumin 2.8 L, Globulin 3.5, Albumin/Globulin Ratio 0.8 L Physical Exam Const alert and oriented x3 General Appearance: cooperative HEENT normocephalic Neck General: normal visual inspection GI soft to palpation and non-distended GI Narrative: Fundus firm Extremity normal to inspection and no calf tenderness Skin no rashes or lesions noted Neuro oriented x3 and CN's II-XII intact bilaterally Psych mental status grossly normal Assessment & Plan Assessment/Plan (1) Preeclampsia: (2) Vaginal delivery: (3) Anemia affecting : QUALIFIERS: Trimester: third trimester Qualified Code(s): O99.013 - Anemia complicating , third trimester (4) Thrombocytopenia affecting : PLAN: Plan PPD#1 , Doing well Routine care pain mgmt ambulation continue magnesium x 24 hrs PP monitor BPs
[2023-09-17] MEDS: Magnesium Sulfate 20 GM/500 ML BAG IV (09:10)
[2023-09-17] MEDS: 0.9% Saline Lock 10 ML Syringe IV (10:24)
[2023-09-17] MEDS: Escitalopram Oxalate 20 MG Tablet PO (10:24)
--- NOTE | 2023-09-17 14:07 | CASEMGMT ---
Social Work Assessment Labor and Delivery Unit Patient Address: [place] [address] Phone number: [phone] Date of Referral: 09/16/23 Time of Referral:? 1048 Referred By: Jens Davidson Date of Intervention: ??09/17/23 Time of Intervention:? 1300 Reason for Referral:? history of drug abuse 9 years ago Sw completed chart review and acknowledges social work consult due to maternal history of substance use. Sw presented to bedside and introduced self to mother of baby (MOB- Elizabeth) and father of baby (FOB- Maksim). Sw explained sw role during hospitalization and completed psychosocial assessment. History obtained from: medical records, MOB and FOB Household composition: Currently residing in the family home is MOB, MONIQUE, KASEY's oldest daughter (Melissa, 14 years old), and two other children that parents have together: Mich (5 years old) and Talat (2 years old). [place] baby will also reside at home when ready for discharge from hospital. Parents deny any issues or concerns with current housing. Patient's parent/guardian status:?KASEY states that she and MONIQUE met on [place] in 2015 and have been together ever since, got in 2017. No concerns regarding domestic violence or intimate partner violence. ? Medical History: ?KASEY is 38 year old female who is 6, para 3- now 4 following labor and delivery of . KASEY received routine care with [facility] throughout . KASEY presented to hospital and delivered baby via vaginal delivery at 38 weeks gestation on 09/16/23. Baby boy, named [place], was born weighing 7lb 7oz and his apgars were 8 and 9 at one and five minutes of life, respectfully. Baby will be followed by Dr. Lawson for pediatrics. KASEY states that she is bottle/ formula feeding baby. Educational Status:? Both parents graduated from high school, no concerns with reading, learning or comprehension. KASEY states that she obtained some college credits, but did not graduate. Financial Status: MONIQUE is gainfully employed outside of the home as a agriculture mechanic. KASEY is a stay at home mom. Infant Supplies:??Parents report to having obtained all necessary baby supplies, including: car seat, safe sleep space, clothes, diapers and wipes. Childcare/Caregiver(s):? MOB is the primary childcare provider along with MONIQUE when he is not at work. Transportation:??Both parents have their drivers license and reliable means of transportation. No barriers at this time. Programs/Agencies Involved: ??Parents are not connected to any community resources that help them financially. KASEY states that she is connected to a psychiatrist who prescribes her medication. ? Children Services/Legal Issues:?No history of Children Services involvement, no issues or concerns warranting referral to be made at this time. ?? Behavioral Health Issues: ??Mental Health History:?FOMuriel denies mental health history. MOB states that she has been diagnosed with depression and is prescribed Lexapro by her psychiatrist. MOB states that she can tell a difference with the medication and continued it throughout . MOB denies ever experiencing baby blues or or anxiety. MOB states that she is mindful of signs and symptoms to be on the lookout for. ?? Substance Use History:?MOB disclosed that she has a substance use history positive for: meth, THC, cocaine and pills. MOB states that when she had her daughter in 2008 she got treatment, went to rehab and has not used since that time. MOB denies any relapses. MOB states that she has no desire to use and it is because of her family that she stays sober. ? Family History:?Parents deny family history of addiction or substance use, or significant mental health diagnoses. ? Drug Screens: ??KASEY's urine screen at time of delivery was negative for all substances. Family/Social Stressors:? Parents deny any issues, concerns or stressors at this time. Parents state that eventually they are going to need to find a bigger house to live in, however the market is not a buyers market right now and they are going to wait for a little while. Support Systems: MOB states that both sets of grandparents are helpful and supportive. MOB states that her siblings are also available if she should need anything. Depression/Shaken Baby/Safe Sleeping:? Rob educated parents on the signs and symptoms of baby blues and depression and anxiety. Parents express understanding. MONIQUE states that he would be able to recognize if KASEY were struggling with her mental health, and he believes that he would know how to help and support her. MOB agrees and states that FOB is a big support to her. Rob educated parents on shaken baby prevention and ABCs of safe sleep. Parents express understanding. ASSESSMENT:? MOB and baby admitted following labor and delivery. MOB and FOB interactive and engaged during completion of psychosocial assessment. MOB admits to substance use and addiction history, denies any relapses since completing rehab/ treatment in 2008. Parents have obtained everything they need for baby and have natural supports in place. MOB states that if she ever struggles with her mental health she has healthy and appropriate ways to cope. PLAN:? MOB and baby to be discharged when medically ready. ?No other services requested or indicated. Jerri Arthur, JIG MAKER, DOCTOR OF NAPRAPATHY
[2023-09-18] MEDS: Ibuprofen 600 MG Tablet PO ×2 (00:47→07:03)
[2023-09-18 03:41] VITALS: BP 128/81; PULSE 70; RESP 18
[2023-09-18 08:40] VITALS: BP 137/88; PULSE 72; RESP 16; TEMP 36.8; O2SAT 98
--- NOTE | 2023-09-18 08:45 | PCM.PN.OB ---
Subjective Subjective Patient is doing well this morning and desires discharge. She denies headache, vision changes, nausea, vomiting. No chest pain or trouble breathing. Lochia is normal. She is ambulating and voiding without difficulty. She is tolerating a diet without nausea or vomiting. She offers no complaints this morning and is feeling well. Objective Data Objective Data Vital Signs: Vital Signs Temp Pulse Resp BP Pulse Ox O2 Del Method 97.9 F 70 18 128/81 H 96 Room Air 09/17/23 21:18 09/18/23 03:41 09/18/23 03:41 09/18/23 03:41 09/17/23 15:29 09/18/23 03:41 Oxygen Delivery Method Room Air Weight: 189 lb 0.2 oz Body Mass Index (BMI) 29.6 Intake & Output: Intake and Output for Last 24 Hours 09/16/23 09/17/23 09/18/23 23:59 23:59 23:59 Intake Total 1014.17 / 1014.17 1455.83 / 1455.83 Output Total 1000 / 1000 1300 / 1300 Balance 14.17 / 14.17 155.83 / 155.83 Lab / Micro Data 09/16/23 11:15 09/16/23 17:25 Physical Exam Const alert and no apparent distress General Appearance: comfortable HEENT normocephalic Resp normal respiratory effort GI soft to palpation, non-tender and non-distended Extremity normal to inspection and no calf tenderness Extremity Narrative: patellar reflexes 2+ Assessment & Plan (1) Vaginal delivery: PLAN: She is from a vaginal delivery doing well. Desires discharge. Discharge instructions reviewed. (2) Preeclampsia: PLAN: She has no symptoms of preeclampsia. She is status post magnesium. Her blood pressures are normal. Discussed checking blood pressures at home and will need a blood pressure check in the office either tomorrow or early next week.
--- NOTE | 2023-09-18 08:49 | DCINST_ITS ---
Discharge Instructions Diet Discharge Diet: No restrictions Activity Discharge Activity: May Drive and May Shower May resume sexual activity in: 6 weeks Weight Bearing Status: Weight bearing as tolerated Lifting Restrictions: nothing heavier than baby Additional Activity Instructions:: Check your blood pressure once daily and call office if 140/90 or higher. Dressing / Incision Call your doctor if you observe: Fever of 101 or Higher, Coldness, Increased Pain, Numbness or Tingling, Change in Color, Inability to urinate, Inability to have a bowel movement, Using more than 1 pad per hour, Shortness of breath, Dizziness, Fainting spells, Swelling in the ankles, Chest pain, Increased palpitations (irregular heartbeat), Calf discomfort and Uncontrolled pain Follow Up Care When: 1 week for blood pressure check 6 weeks for exam Test Results: Test results from this visit will be discussed in further detail at your follow- up appointment, if applicable. Discharge Plan Admission Admit Date/Time: 09/16/23 09:50 Primary Reason for Your Visit: delivery Attending Provider: Jens Davidson Primary Care Provider: Jesus Khan Instructions Patient Instructions: After a Vaginal , Understanding Preeclampsia Discharge Orders/Prescriptions Prescriptions: Continued ibuprofen 600 mg tablet 600 mg PO Q6H PRN (Reason: pain) Qty: 20 0RF escitalopram oxalate 20 mg tablet 20 mg PO DAILY Discontinued amoxicillin-pot clavulanate 875-125 mg tablet 1 tab PO BID Qty: 20 0RF pantoprazole 40 mg tablet,delayed release (DR/EC) 40 mg PO DAILY Referrals / Follow Up: Jesus Khan DO [Primary Care Provider] - Disposition Disposition (needs filled in before D/C Order can be placed): Home, Self Care
[2023-09-18] MEDS: Escitalopram Oxalate 20 MG Tablet PO (09:33)
--- NOTE | 2023-09-22 15:00 | NURSING ---
Follow up phone call made. Patient states she is doing well since being home. Patient denies any pain, states her bleeding is getting much better. States the is feeding well every 3 hours and taking 1-3 oz of formula. Denies any questions or concerns at this time.
== END 2023-09-18 10:40 | disposition home or self-care (01) | DRG 807 ==
PROVIDERS: Admitting Provider Obstetrics & Gynecology; PCP Student in an Organized Health Care Education/Training Program; Visit Provider Obstetrics & Gynecology
DX: O62.3 Precipitate labor (principal); Z37.0 Single live birth; O14.95 Unspecified pre-eclampsia, complicating the puerperium; Z3A.38 38 weeks gestation of pregnancy; Z87.891 Personal history of nicotine dependence
CPT/HCPCS: 59050; 80053; 80307; 84550; 85025; 86780; 86850; 86900; 86901; 99221; A4216; G0378